=== PATIENT | male | born 1950 | race Caucasian/White ===

== ENCOUNTER → 2024-01-28 11:19 | Outpatient (REF) | payer MEDICARE, OTHER, SELFPAY | LOC: DHCBC/DCA 11:19 | PROVIDERS: ATTENDING PHYSICIAN Internal Medicine Cardiovascular Disease; FAMILY PHYSICIAN Family Medicine | DX: I25.10 Atherosclerotic heart disease of native coronary artery without angina pectoris (principal); I25.2 Old myocardial infarction; R07.89 Other chest pain | CPT/HCPCS: 78452; 93017; A9500; J2785 ==

== ENCOUNTER 2024-02-13 07:46 | Emergency (ER) | payer MEDICARE, OTHER, SELFPAY ==
[2024-02-13 07:52] VITALS: BP 153/87
[2024-02-13 08:32] LABS: % Eosinophils 4.2 % (0-6); % Immature Granulocytes 0.2 % (0-0.5); % Lymphocytes 19.1 % (20.5-51.1); % Monocytes 7.6 % (1.7-9.3); % Neutrophils 67.9 % (42.2-75.2); Absolute Basophils 0.1 10^3/uL (0-0.2); Absolute Eosinophils 0.2 10^3/uL (0-0.7); Absolute Monocytes 0.4 10^3/uL (0.1-0.6); Absolute Neutrophils 3.4 10^3/uL (1.4-6.5); Hemoglobin 14.8 g/dL (13.0-18.0); Mean Corp Hgb Conc. 34.4 g/dL (33.0-37.0); Mean Corpuscular Hgb 29.3 pg (27.0-31.0); Mean Corpuscular Volume 85.1 fL (80.0-94.0); Mean Platelet Volume 10.2 fL (7.4-10.4); Nucleated Red Blood Cells % 0 % (-); Platelet Count 142 10^3/uL (130-400); Red Blood Cell Count 5.05 10^6/uL (4.70-6.10); Red Cell Dist. Width 13.8 % (11.5-14.5)
[2024-02-13 08:49] LABS: ALT (SGPT) 23 U/L (0-50); AST (SGOT) 29 U/L (17-59); Albumin 4.2 g/dl (3.5-5.0); Alkaline Phosphatase 53 U/L (38-126); Blood Urea Nitrogen 25 mg/dl (9-20); Calcium 9.7 mg/dl (8.4-10.2); Carbon Dioxide 25 mmol/L (22-30); Chloride 111 mmol/L (98-107); Glucose 126 mg/dl (70-99); Potassium 4.6 mmol/L (3.5-5.1); Sodium 143 mmol/L (135-145); Total Bilirubin 1.7 mg/dl (0.2-1.3); Total Protein 7.2 g/dl (6.3-8.2); eGFR > 60.00
[2024-02-13 08:57] LABS: Troponin I < 0.012 ng/ml
--- NOTE | 2024-02-13 10:20 | ED.GENMED ---
History of Present Illness
General
Chief Complaint: Dizziness
Time Seen by Provider: 02/13/24 10:20
Travel History
Have you had any contact with someone who has COVID-19?: No
Do you have any symptoms of coronavirus? Fever > 100 degrees, chills, cough, shortness of breath, sore throat, loss of taste or smell, muscle aches, or headache?: No
History of Present Illness
History of Present Illness:
HPI: Patient presents with dizziness. This is associated with diaphoresis. He has had similar episodes in the past. He had some trouble walking because he felt very wobbly. He had some vague chest discomfort. He had a nuclear stress test last
month. He states he had a heart attack in the past does not necessarily describe the same symptoms other than diaphoresis.
EXAM:
GENERAL: Well appearing in no distress
HEENT: Moist oral mucosa, no nystagmus
CARDIOVASCULAR: No murmurs, normal heart rate, regular rhythm, No chest wall tenderness
PULMONARY: No respiratory distress, breath sounds are clear and equal
ABDOMEN: Soft with no peritoneal signs, no tenderness
NEUROLOGIC: Excellent strength all extremities, no coordination deficits, normal finger-nose testing, normal [id number] test
PSYCHIATRIC: Appropriate mental status, normal insight and judgement
EXTREMITIES: Nontender, no edema, moves all extremities equally
SKIN: No rash, no lesions
TIME OF INITIAL ENCOUNTER: 10:20 AM
NUMBER AND COMPLEXITY OF PROBLEMS ADDRESSED AT THE ENCOUNTER
� Chronic conditions affecting care: Former smoker, CAD/MN, hypothyroidism, head neck cancer
� Acute Exacerbation and/or Progression of Chronic Illness: This is an acute but recurring problem
� Differential Diagnosis includes: BPPV, intracranial pathology, ACS
AMOUNT AND/OR COMPLEXITY OF DATA TO BE REVIEWED AND ANALYZED
� I performed an independent evaluation of and my interpretation is:
EKG: Sinus 40, no acute ST abnormality
CT: CT brain shows no acute abnormality.
X-rays:
Laboratory Studies: CBC unremarkable, chemistries relatively unremarkable however the BUN to creatinine ratio was elevated, total bili 1.7 otherwise normal LFTs, troponin negative
Other:
� Review of other/old records: I reviewed old records, total bili has been elevated in the past; stress test from last month showed a fixed defect in the mid inferior/apex more consistent with soft tissue attenuation and is
considered a moderate risk study but unchanged from 2021. I also reviewed several other EKGs over the years and he did have heart rates in the 40s frequently.
� Clinical information was obtained by an independent historian: I spoke to the at bedside
� Prescriptions/Medications Considered but not given:
� Further testing considered but not performed:
RISK OF COMPLICATIONS AND/OR MORBIDITY OR MORTALITY OF PATIENT MANAGEMENT
� Social determinants of health affecting care: Lives at home
� Discussion with other providers: Considered/offered discussion with cardiology however the patient is more eager to go home now�encourage close outpatient follow-up
� Escalation of care including admission/observation vs risk of discharge considered: I further reviewed patient's records. The patient had an MN in 2014 initially at [facility] and then was transferred here for stenting of the
RCA. Initial troponin here is negative. His EKG shows no signs of ischemia but is bradycardic�he has been bradycardic in the past and I do not think this is a contributing factor as this is a chronic issue. Second troponin negative. He is to
follow-up with cardiology as outpatient. Cardiology hotline discharge paperwork used.
Past History
Past History
ED Past Medical History: CAD, Cancer (neck cancer), HTN, Hypercholesterolemia and MN
ED Past Surgical History: Appendectomy, Cardiac (stents with angioplasty 2014), Orthopedic (knee replacement) and Tonsilectomy
Social History
Tobacco: Former smoker
Alcohol: None
Drug: None
Personal:
Living: with family
Family History
Family History: Other
Phy Exam
Physical Exam
Physical Exam:
See HPI
Course
Orders/Labs/Results
Orders:
Orders
02/13/24 07:55
EKG [Electrocardiogram (*1)] Stat
Reason for Study: Chest Pain
02/13/24 07:56
EKG- Treatment ONCE
EKG- Treatment ONCE
02/13/24 08:10
Complete Blood Count/With Diff Urgent
Comprehensive Metabolic Panel Urgent
Troponin I Urgent
02/13/24 10:30
0.9% Sodium Chloride 1000 ml [Nss] 1,000 ml IV BOLUS
02/13/24 10:32
CT Head W/o Iv Contrast Urgent
Comment:
Reason For Exam: severe dizzy / reports ataxia
02/13/24 10:38
Troponin I Urgent
Abnormal Lab Results
02/13/24
08:10
Absolute Lymphs (auto) 1.0 L 10^3/uL
(1.2-3.4)
Lymphocytes % 19.1 L %
(20.5-51.1)
Chloride 111 H mmol/L
(98-107)
BUN 25 H mg/dl
(9-20)
Glucose 126 H mg/dl
(70-99)
Total Bilirubin 1.7 H mg/dl
(0.2-1.3)
02/13/24 08:10
02/13/24 08:10
Vital Signs
Initial and Last Documented VS:
Initial Vital Signs
Temp Pulse Resp BP Pulse Ox
98.7 F 43 18 153/87 100
02/13/24 07:52 02/13/24 07:52 02/13/24 07:52 02/13/24 07:52 02/13/24 07:52
Last Documented Vital Signs
Temp Pulse Resp BP Pulse Ox
98.7 F 46 17 161/76 99
02/13/24 07:52 02/13/24 13:15 02/13/24 13:15 02/13/24 12:00 02/13/24 12:45
*Critical Care Note
Total Time (30-74mins, 75-104mins- exclusive of procedures): Not Applicable
ED Attending Note
-
Portions of this chart may have been created with voice recognition software.� Occasional wrong word or��sound alike� substitutions may have occurred due to the inherent limitations of voice recognition software.
Discharge Plan
Departure
Patient Disposition: Home (Routine Discharge)
Date of Disposition: 02/13/24
Time of Disposition: 12:52
Patient with high blood pressure during this ER visit?: Yes
Discharge Problem:
Dizziness
Instructions: Chest Pain DCA Follow Up, Dizziness
Prescriptions:
No Action
atorvastatin 40 MG tablet
40 mg PO QPM Qty: 90 3RF
aspirin 81 MG tablet,delayed release (DR/EC)
81 mg PO DAILY Qty: 0 0RF
Rx Instructions:
over the counter
nitroglycerin 0.4 MG tablet, sublingual
0.4 mg sublingual [id number] PRN (Reason: chest pain) Qty: 30 3RF
levothyroxine 125 MCG capsule
125 mcg PO DAILY
amlodipine 5 MG tablet
5 mg PO DAILY 30 Days Qty: 30 0RF
Referrals:
Chantelle Gillis MD [Family Provider] -
Dilshad Lo MD [Active] - Follow up in 2-3 days
Activity Restrictions/Additional Instructions:
Follow-up with cardiology. Return here if worse. 2 cardiac blood test were negative.
Interventions
Interventions:
*Risk Screen - Suicide Last Done: 02/13/24 07:54
*General Assessment Last Done: 02/13/24 07:54
*Neglect/Abuse Screening Last Done: 02/13/24 07:54
ED- Fall Risk Assessment Last Done: 02/13/24 10:29
*ED COVID-19 Vaccine History Last Done: 02/13/24 10:29
*Nursing Disposition Last Done: 02/13/24 13:38
ED- Neurological Assessment Last Done: 02/13/24 10:29
ED- Cardiac Assessment Last Done: 02/13/24 10:29
Discharge Date and Time
Discharge Date/Time: 02/13/24 13:39
Print Language: YORUBA
[2024-02-13 10:29] VITALS: BP 148/82
[2024-02-13] MEDS: NSS 1000 IV (10:39)
[2024-02-13 11:00] VITALS: BP 163/80
[2024-02-13 11:09] LABS: Troponin I < 0.012 ng/ml
[2024-02-13 11:51] VITALS: BP 156/86
[2024-02-13 12:00] VITALS: BP 161/76
== END 2024-02-13 13:39 | disposition home or self-care (01) ==
LOC: EMR 07:46
PROVIDERS: EMERGENCY PHYSICIAN Emergency Medicine; FAMILY PHYSICIAN Family Medicine
DX: R42 Dizziness and giddiness (principal); R61 Generalized hyperhidrosis; R07.89 Other chest pain; I25.2 Old myocardial infarction; Z87.891 Personal history of nicotine dependence; I25.10 Atherosclerotic heart disease of native coronary artery without angina pectoris; E03.9 Hypothyroidism, unspecified; E78.00 Pure hypercholesterolemia, unspecified; I10 Essential (primary) hypertension; Z95.5 Presence of coronary angioplasty implant and graft; Z96.659 Presence of unspecified artificial knee joint; Z85.89 Personal history of malignant neoplasm of other organs and systems
CPT/HCPCS: 99284; 96360; 70450; 80053; 84484; 85025; 93005

== ENCOUNTER → 2024-03-07 13:42 | Outpatient (REF) | payer MEDICARE, OTHER, SELFPAY | LOC: RCS 13:42 | PROVIDERS: ATTENDING PHYSICIAN Internal Medicine Cardiovascular Disease; FAMILY PHYSICIAN Family Medicine | DX: I49.5 Sick sinus syndrome (principal); R07.89 Other chest pain; R00.1 Bradycardia, unspecified | CPT/HCPCS: 93306 ==

== ENCOUNTER → 2024-04-14 12:00 | Outpatient (REF) | payer MEDICARE, OTHER, SELFPAY | LOC: DHSLP 12:00 | PROVIDERS: ATTENDING PHYSICIAN Internal Medicine Cardiovascular Disease; FAMILY PHYSICIAN Family Medicine | DX: G47.19 Other hypersomnia (principal); R06.83 Snoring; R42 Dizziness and giddiness; R06.02 Shortness of breath; G47.8 Other sleep disorders | CPT/HCPCS: 95806 ==

== ENCOUNTER → 2025-08-26 06:50 | Outpatient (REF) | payer MEDICARE, OTHER, SELFPAY | LOC: RAD 06:50 | PROVIDERS: ATTENDING PHYSICIAN Internal Medicine Cardiovascular Disease; FAMILY PHYSICIAN Family Medicine | DX: I25.10 Atherosclerotic heart disease of native coronary artery without angina pectoris (principal) | CPT/HCPCS: 76770 ==